=== PATIENT | male | born 1955 | race Caucasian/White ===

== ENCOUNTER 2020-08-27 12:09 | Emergency (ER) | payer MEDICARE ==
[~2020-08-27] VITALS: Ht 167.6 cm; Wt 77.1 kg
[2020-08-27 12:48] LABS: BASOPHILS ABSOLUTE AUTO 0.04 K/mm3 (0.00-0.23); BASOPHILS PERCENT AUTO 0 % (0-2); EOSINOPHILS ABSOLUTE AUTO 0.12 K/mm3 (0.00-0.68); EOSINOPHILS PERCENT AUTO 1 % (0-6); Hematocrit 33.9 % (37.0-53.0); Hemoglobin 9.2 g/dL (13.5-17.5); IMMATURE GRAN ABSOLUTE AUTO 0.05 K/mm3 (0.00-0.10); IMMATURE GRAN PERCENT AUTO 1 % (0-1); LYMPHOCYTES ABSOLUTE AUTO 1.48 K/mm3 (0.84-5.20); LYMPHOCYTES PERCENT AUTO 14 % (21-46); MONOCYTES ABSOLUTE AUTO 1.46 K/mm3 (0.16-1.47); MONOCYTES PERCENT AUTO 13 % (4-13); Mean Corpuscular HGB 23.5 pg (26.0-34.0); Mean Corpuscular HGB Conc 27.1 g/dL (31.5-36.5); Mean Corpuscular Volume 87 fL (80-100); Mean Platelet Volume 11.2 fL (9.1-12.4); NEUTROPHILS PERCENT AUTO 71 % (41-73); Platelet Count 183 K/mm3 (150-400); RDW Coefficient Variation 19.9 % (11.7-14.2); RDW Standard Deviation 63.6 fL (35.1-46.3); Red Blood Cell Count 3.92 M/mm3 (4.30-5.90); White Blood Cell Count 10.95 K/mm3 (4.00-11.30)
[2020-08-27 13:11] LABS: Alanine Aminotransfer (ALT/SGP 29 U/L (12-78); Albumin, Blood 3.6 g/dL (3.4-5.0); Albumin/Globulin Ratio 1.1 (0.8-1.8); Alk Phos 68 U/L (50-136); Anion Gap 2 mmol/L (6-16); Aspartate Aminotrans (AST/SGOT 27 U/L (12-37); Bilirubin, Total 0.4 mg/dL (0.1-1.0); Blood Urea Nitrogen 24 mg/dL (8-24); CO2, Blood 41 mmol/L (21-32); Calcium, Blood 9.3 mg/dL (8.5-10.1); Chloride, Blood 98 mmol/L (98-108); Creatinine, Blood 1.09 mg/dL (0.60-1.20); Globulin, Blood 3.3 g/dL (2.2-4.0); Glomerular Filtration Rate >60 (60-); Glucose, Blood 108 mg/dL (70-99); Potassium, Blood 3.6 mmol/L (3.5-5.5); Sodium, Blood 141 mmol/L (136-145); Total Protein, Blood 6.9 g/dL (6.4-8.2); Troponin I 0.017 ng/mL (0.000-0.040)
[2020-08-27] MEDS ORDERED: ALBU90OI INH ×2 (13:31→13:53)
[2020-08-27] MEDS ORDERED: IPRAT-ALBUT 0.5-3 ML (13:32)
[2020-08-27] MEDS ORDERED: C-500500 M1 PO (13:32)
[2020-08-27] MEDS ORDERED: ALBU2.5V5 INH (13:32)
[2020-08-27] MEDS ORDERED: ASPI81CH PO (13:33)
[2020-08-27] MEDS ORDERED: ENAL10 PO (13:34)
[2020-08-27] MEDS ORDERED: FERSU300 PO (13:34)
[2020-08-27] MEDS ORDERED: BENADRYL25 MG PO (13:34)
[2020-08-27] MEDS ORDERED: Q-Tussin100 MG/5 M (13:34)
[2020-08-27] MEDS ORDERED: FLUT1DIS5 INH (13:35)
[2020-08-27] MEDS ORDERED: Norco 10-325 T1 EACH PO (13:35)
[2020-08-27] MEDS ORDERED: Isosorbide Mono30 MG PO (13:36)
[2020-08-27] MEDS ORDERED: MAGNESIUM (13:37)
[2020-08-27] MEDS ORDERED: METO50ER PO (13:37)
[2020-08-27] MEDS ORDERED: MULVITA PO (13:37)
[2020-08-27] MEDS ORDERED: NITR.4SL SL (13:37)
[2020-08-27] MEDS ORDERED: OMEP20ER PO (13:38)
[2020-08-27] MEDS ORDERED: POTA10T PO (13:38)
[2020-08-27] MEDS ORDERED: Prednisone10 MG PO (13:38)
[2020-08-27] MEDS ORDERED: THERA-D2000 UNIT PO (13:39)
[2020-08-27] MEDS ORDERED: TORSE20 PO (13:39)
[2020-08-27] MEDS ORDERED: Crestor20 MG PO (13:39)
[2020-08-27] MEDS ORDERED: TIOT18 INH (13:39)
[2020-08-27] MEDS ORDERED: METPRE4DP PO (13:53)
[2020-08-27] MEDS ORDERED: AZIT250 PO (13:53)
== END 2020-08-27 14:20 | disposition home or self-care (01) ==
LOC: ER 12:09
PROVIDERS: Physician Assistant
DX: J44.1 Chronic obstructive pulmonary disease with (acute) exacerbation (principal); I50.9 Heart failure, unspecified; I25.2 Old myocardial infarction; Z79.899 Other long term (current) drug therapy; Z79.52 Long term (current) use of systemic steroids; Z87.891 Personal history of nicotine dependence
CPT/HCPCS: 80053; 83880; 84484; 85025; 93005; 93010; 94644; 96374; 99283-25; J2930